=== PATIENT | male | born 1950 | race Caucasian/White ===

== ENCOUNTER 2020-06-12 11:03 | Outpatient (CLI) | payer MEDICARE, OTHER, SELFPAY ==
[2020-06-12 11:24] LABS: Basophils Percent Auto 0.2 % (0.2-1.2); Eosinophils Absolute Auto 0.2 K/mm3 (0-0.3); Eosinophils Percent Auto 3.5 % (0-4.4); Hematocrit 45.1 % (42.0-52.0); Immature Granulocyte Absolute 0.01 K/mm3 (0.00-0.031); Immature Granulocyte Percent A 0.2 % (0-0.5); Lymphocytes Absolute Auto 1.11 K/mm3 (0.9-3.2); Mean Corpuscular HGB Conc 33.3 g/dl (32-36); Mean Corpuscular Hemoglobin 29.7 pg (26-34); Mean Corpuscular Volume 89.3 fl (80-100); Mean Platelet Volume 9.8 fl (7.4-10.4); Monocytes Absolute Auto 0.4 K/mm3 (0.1-0.6); Monocytes Percent Auto 9.6 % (2.6-8.5); Neutrophils Absolute Auto 2.6 K/mm3 (1.3-6.7); Neutrophils Percent Auto 60.5 % (45.5-73.1); Platelet Count Result 161 k/mm3 (150-375); Red Blood Count 5.05 M/mm3 (4.6-6.20); Red Cell Distribution Width 12.7 % (11.5-14.5); White Blood Count 4.3 K/mm3 (4.5-10.0)
[2020-06-12 11:28] LABS: Blood Urea Nitrogen 28 mg/dL (8-26); Carbon Dioxide 26 mmol/L (22-30); Chloride 101 mmol/L (98-109); Estimated Glomerular Filt Rate 50; Glucose 103 mg/dL (70-105); Potassium 4.4 mmol/L (3.5-4.9); Sodium 140 mmol/L (138-146)
[2020-06-12 16:39] LABS: Alanine Aminotransferase 24 U/L (4-50); Albumin Level 4.2 g/dL (3.5-5.1); Alkaline Phosphatase 85 U/L (38-126); Anion Gap 12.5 mmol/L (7-16); Aspartate Amino Transferase 29 U/L (17-59); Bilirubin,Total 0.6 mg/dL (0.2-1.3); Blood Urea Nitrogen 28 mg/dL (9-20); Calcium 9.4 mg/dL (8.4-10.2); Carbon Dioxide 26 mmol/L (22-30); Chloride 104 mmol/L (98-107); Estimated Glomerular Filt Rate 55; Glucose 102 mg/dL (75-110); Potassium 4.5 mmol/L (3.4-5.0); Sodium 138 mmol/L (137-145)
== END 2020-06-12 11:04 | disposition home or self-care (01) ==
PROVIDERS: PCP Emergency Medicine; Visit Provider Internal Medicine Hematology & Oncology
DX: D61.818 Other pancytopenia (principal)
CPT/HCPCS: 36415; 80048; 80053; 85025

== ENCOUNTER 2021-06-12 09:49 | Outpatient (CLI) | payer MEDICARE, OTHER, SELFPAY ==
[2021-06-12 10:19] LABS: Basophils Percent Auto 0.6 % (0.2-1.2); Eosinophils Absolute Auto 0.1 K/mm3 (0-0.3); Eosinophils Percent Auto 3.6 % (0-4.4); Hematocrit 45.2 % (42.0-52.0); Immature Granulocyte Absolute 0.01 K/mm3 (0.00-0.031); Immature Granulocyte Percent A 0.3 % (0-0.5); Lymphocytes Absolute Auto 1.05 K/mm3 (0.9-3.2); Lymphocytes Percent Auto 29.2 % (18.3-44.2); Mean Corpuscular HGB Conc 33.2 g/dl (32-36); Mean Corpuscular Volume 90.4 fl (80-100); Mean Platelet Volume 9.5 fl (7.4-10.4); Monocytes Absolute Auto 0.5 K/mm3 (0.1-0.6); Monocytes Percent Auto 12.5 % (2.6-8.5); Neutrophils Absolute Auto 1.9 K/mm3 (1.3-6.7); Neutrophils Percent Auto 53.8 % (45.5-73.1); Platelet Count Result 159 k/mm3 (150-375); Red Cell Distribution Width 13.1 % (11.5-14.5); White Blood Count 3.6 K/mm3 (4.5-10.0)
== END 2021-06-12 09:50 | disposition home or self-care (01) ==
LOC: ANHLAB 09:58
PROVIDERS: PCP Emergency Medicine; Visit Provider Internal Medicine Hematology & Oncology
DX: D61.818 Other pancytopenia (principal)
CPT/HCPCS: 36415; 85025

== ENCOUNTER 2022-06-11 09:40 | Outpatient (CLI) | payer MEDICARE, OTHER, SELFPAY ==
[2022-06-11 09:59] LABS: Basophils Percent Auto 0.6 % (0.2-1.2); Eosinophils Absolute Auto 0.1 K/mm3 (0-0.3); Eosinophils Percent Auto 2.9 % (0-4.4); Hematocrit 44.2 % (42.0-52.0); Hemoglobin 14.7 g/dL (14.0-18.0); Lymphocytes Absolute Auto 1.12 K/mm3 (0.9-3.2); Lymphocytes Percent Auto 32.1 % (18.3-44.2); Mean Corpuscular HGB Conc 33.3 g/dl (32-36); Mean Corpuscular Hemoglobin 29.9 pg (26-34); Mean Platelet Volume 9.5 fl (7.4-10.4); Monocytes Absolute Auto 0.4 K/mm3 (0.1-0.6); Monocytes Percent Auto 11.5 % (2.6-8.5); Neutrophils Absolute Auto 1.9 K/mm3 (1.3-6.7); Neutrophils Percent Auto 52.9 % (45.5-73.1); Platelet Count Result 137 k/mm3 (150-375); Red Blood Count 4.91 M/mm3 (4.6-6.20); Red Cell Distribution Width 12.7 % (11.5-14.5); White Blood Count 3.5 K/mm3 (4.5-10.0)
[2022-06-11 10:03] LABS: Blood Urea Nitrogen 29 mg/dL (8-26); Carbon Dioxide 25 mmol/L (22-30); Chloride 106 mmol/L (98-109); Estimated Glomerular Filt Rate 50; Glucose 79 mg/dL (70-105); Ionized Calcium (POC) 1.23 mmol/L (1.11-1.31); Potassium 4.3 mmol/L (3.5-4.9); Sodium 141 mmol/L (138-146)
[2022-06-11 12:36] LABS: Alanine Aminotransferase 27 U/L (6-50); Albumin Level 4.2 g/dL (3.5-5.1); Alkaline Phosphatase 86 U/L (38-126); Anion Gap 8 mmol/L (8-16); Aspartate Amino Transferase 31 U/L (17-59); Bilirubin,Total 0.7 mg/dL (0.2-1.3); Blood Urea Nitrogen 30 mg/dL (9-20); Calcium 9.6 mg/dL (8.4-10.2); Carbon Dioxide 25 mmol/L (22-30); Chloride 106 mmol/L (98-107); Estimated Glomerular Filt Rate 55; Glucose 84 mg/dL (65-110); Potassium 4.4 mmol/L (3.4-5.0); Sodium 139 mmol/L (137-145)
== END 2022-06-11 09:41 | disposition home or self-care (01) ==
LOC: ANHLAB 09:43
PROVIDERS: PCP Emergency Medicine; Visit Provider Internal Medicine Hematology & Oncology
DX: D61.818 Other pancytopenia (principal)
CPT/HCPCS: 36415; 80047; 80053; 85025

== ENCOUNTER 2023-04-21 04:45 | Observation (INO) | payer MEDICARE, OTHER, SELFPAY ==
[2023-04-21] VITALS (10 sets, daily range): BP systolic 125–170; BP diastolic 86–104; PULSE 48–66; RESP 12–22; TEMP 35.8–36.8; O2SAT 99–100; BMI 24.3
--- NOTE | 2023-04-21 | EST_ITS ---
Patient Info Name: Jaycob Miles Age: 72 years : 1950 Gender: Male Ht: 70 in Wt: 164 lbs BSA: 1.92 m2 HR: 50 bpm BP: 147 / 81 mmHg Heart Rhythm: Sinus Rhythm Exam Date: 04/21/2023 1:09 PM Exam Location: [facility] Stress Patient Status: Outpatient Admit Date: 04/21/2023 Staff Ordering Physician: Erasto Cobos MD Attending Provider: Erasto Cobos MD Exercise Technologist: Solange Hood CT Nurse: TUAN HORNER Exam Type: CA stress test treadmill w NM Study Info Indications R07.89 - Other chest pain A nuclear stress test was performed. Summary 1. Exercise capacity very good at >10 METS. 2. Hypertensive blood pressure response to exercise. 3. No abnormal ST/T wave changes diagnostic of ischemia with exercise. 4. Please correlate with nuclear medicine images, reported separately. Protocol: Joo Stress ECG Details Stage: REST Duration (min): 0 min : 58 sec Speed (mph): 0.0 Grade (%): 0 HR (bpm): 50 SBP (mmHg): 145 DBP (mmHg): 87 METS: --- Stage: REST Duration (min): 6 min : 56 sec Speed (mph): 0.0 Grade (%): 0 HR (bpm): 48 SBP (mmHg): 145 DBP (mmHg): 87 METS: --- Stage: STAGE 1 Duration (min): 1 min : 0 sec Speed (mph): 1.7 Grade (%): 10 HR (bpm): 89 SBP (mmHg): 145 DBP (mmHg): 87 METS: --- Stage: STAGE 1 Duration (min): 2 min : 0 sec Speed (mph): 1.7 Grade (%): 10 HR (bpm): 97 SBP (mmHg): 145 DBP (mmHg): 87 METS: --- Stage: STAGE 1 Duration (min): 3 min : 0 sec Speed (mph): 1.7 Grade (%): 10 HR (bpm): 91 SBP (mmHg): 178 DBP (mmHg): 81 METS: --- Stage: STAGE 2 Duration (min): 1 min : 0 sec Speed (mph): 2.5 Grade (%): 12 HR (bpm): 100 SBP (mmHg): 178 DBP (mmHg): 81 METS: --- Stage: STAGE 2 Duration (min): 2 min : 0 sec Speed (mph): 2.5 Grade (%): 12 HR (bpm): 107 SBP (mmHg): 172 DBP (mmHg): 83 METS: --- Stage: STAGE 2 Duration (min): 3 min : 0 sec Speed (mph): 2.5 Grade (%): 12 HR (bpm): 112 SBP (mmHg): 172 DBP (mmHg): 83 METS: --- Stage: STAGE 3 Duration (min): 1 min : 0 sec Speed (mph): 3.4 Grade (%): 14 HR (bpm): 120 SBP (mmHg): 173 DBP (mmHg): 78 METS: --- Stage: STAGE 3 Duration (min): 2 min : 0 sec Speed (mph): 3.4 Grade (%): 14 HR (bpm): 127 SBP (mmHg): 173 DBP (mmHg): 78 METS: --- Stage: STAGE 3 Duration (min): 3 min : 0 sec Speed (mph): 3.4 Grade (%): 14 HR (bpm): 131 SBP (mmHg): 193 DBP (mmHg): 82 METS: --- Stage: RECOVERY Duration (min): 0 min : 59 sec Speed (mph): 0.0 Grade (%): 0 HR (bpm): 92 SBP (mmHg): 193 DBP (mmHg): 82 METS: --- Stage: RECOVERY Duration (min): 1 min : 59 sec Speed (mph): 0.0 Grade (%): 0 HR (bpm): 67 SBP (mmHg): 193 DBP (mmHg): 82 METS: --- Stage: RECOVERY Duration (min): 2 min : 59 sec Speed (mph):
--- NOTE | ~2023-04-21 | NM_ITS ---
EXAMINATION: NM stress w perf spect multi DATE: 04/21/2023 13:59 INDICATION: Chest pain. TECHNIQUE: Rest images were obtained following intravenous administration of 9.9 mCi Tc99m tetrofosmi n (DAVIDsTEA). The patient performed an exercise activity. At peak exercise, 32.0 mCi Tc99m tetrofosmin (Myoview) was administered intravenously, and stress images were obtained. Data was reconstructed in to short axis and horizontal and vertical long axis SPECT images. Gated SPECT images were also obtain ed. COMPARISON: CT abdomen and pelvis 05/08/2018 FINDINGS: There is no definite reversible or fixed perfusion abnormality to suggest ischemia or infar ction. There is no segmental wall motion abnormality. Left ventricular ejection fraction measures > 70%. IMPRESSION: 1. No definite ischemia or infarct. 2. Normal left ventricular ejection fraction measuring >70%. Reviewed, dictated and finalized at location A.
--- NOTE | ~2023-04-21 | XR_ITS ---
Portable chest x-ray Comparison: None Clinical History: Chest pain Findings: Lungs are clear, without focal consolidation or pleural effusion. Cardiomediastinal silho uette is unremarkable. Bones and soft tissues are unremarkable. Impression: Normal chest. Reviewed, dictated and finalized at location . Impression: Normal chest.
--- NOTE | 2023-04-21 04:49 | ECG_ITS ---
Measurements Intervals [place] Rate: 64 P: 7 WV: 147 QRS: -19 QRSD: 93 T: 31 QT: 382 QTc: 396 Interpretive Statements SINUS RHYTHM NO PREVIOUS ECG AVAILABLE FOR COMPARISON Electronically Signed On 04-21-2023 10:55:47 CDT by Mis Love M.D.
[2023-04-21] MEDS: ASPIRIN 81 MG CHEWABLE TABLET 324 MG PO (05:35)
[2023-04-21 05:50] LABS: Basophils Percent Auto 0.3 % (0.2-1.2); Eosinophils Absolute Auto 0.1 K/mm3 (0-0.3); Eosinophils Percent Auto 4.5 % (0-4.4); Hematocrit 44.3 % (42.0-52.0); Hemoglobin 14.7 g/dL (14.0-18.0); Immature Granulocyte Absolute 0.01 K/mm3 (0.00-0.031); Immature Granulocyte Percent A 0.3 % (0-0.5); Lymphocytes Absolute Auto 1.19 K/mm3 (0.9-3.2); Lymphocytes Percent Auto 38.1 % (18.3-44.2); Mean Corpuscular HGB Conc 33.2 g/dl (32-36); Mean Corpuscular Hemoglobin 29.6 pg (26-34); Mean Corpuscular Volume 89.1 fl (80-100); Mean Platelet Volume 9.5 fl (7.4-10.4); Monocytes Absolute Auto 0.4 K/mm3 (0.1-0.6); Monocytes Percent Auto 11.2 % (2.6-8.5); Neutrophils Absolute Auto 1.4 K/mm3 (1.3-6.7); Neutrophils Percent Auto 45.6 % (45.5-73.1); Platelet Count Result 147 k/mm3 (150-375); Red Blood Count 4.97 M/mm3 (4.6-6.20); Red Cell Distribution Width 13.2 % (11.5-14.5); White Blood Count 3.1 K/mm3 (4.5-10.0)
[2023-04-21 05:58] LABS: INR 0.9; Prothrombin Time 12.9 Seconds (11.1-14.7)
[2023-04-21 05:59] LABS: Partial Thromboplastin Time 24.1 SECONDS (22.3-36.8)
[2023-04-21 06:01] LABS: Alanine Aminotransferase 30 U/L (6-50); Albumin Level 4.2 g/dL (3.5-5.1); Alkaline Phosphatase 107 U/L (38-126); Anion Gap 5 mmol/L (8-16); Aspartate Amino Transferase 34 U/L (17-59); Bilirubin,Total 0.5 mg/dL (0.2-1.3); Blood Urea Nitrogen 26 mg/dL (9-20); Calcium 8.9 mg/dL (8.4-10.2); Carbon Dioxide 26 mmol/L (22-30); Chloride 106 mmol/L (98-107); Estimated CRCL calculation 53 ml/min; Estimated Glomerular Filt Rate 60; Glucose 102 mg/dL (65-110); Lipase 96 U/L (23-300); Sodium 137 mmol/L (137-145)
[2023-04-21 06:11] LABS: Troponin I < 0.012 ng/mL (0.000-0.034)
--- NOTE | 2023-04-21 07:24 | ED.CHESTPAIN ---
HPI - Chest Pain General Chief Complaint: Chest Pain Stated Complaint: chest pain Time Seen by Provider: 04/21/23 07:23 Source: patient and family History of Present Illness HPI narrative: Patient presents with left chest pain radiating to left upper extremity wake him up from sleep at 5:00 this morning. Associated with perspiration, and elevated blood pressure. Patient denies having similar symptoms. Patient does not take medicine at home, drinks occasionally. Currently is pain-free. Pain lasted for 30 minutes Related Data Allergies Allergy/AdvReac Type Severity Reaction Status Date / Time gabapentin Allergy Hallucinati Verified 04/21/23 05:37 ng Review of Systems Review of Systems: All systems reviewed & are unremarkable except as noted in HPI and below Exam Narrative: General appearance: Well-developed, well-nourished Skin: Normal color Head: Normocephalic, nontraumatic Eyes: Clear conjunctiva ENT: Oropharynx normal, ears normal, nose normal Neck: Supple, nontender Chest and respiratory: Airway patent, no respiratory distress, no accessory muscle use Heart: Regular rate/rhythm Abdomen: Soft, nontender, no organomegaly, quiet bowel sounds Vascular: Normal peripheral pulses, normal capillary refill. Musculoskeletal: Normal range of motion, nontender back Neurologic: Alert and oriented ?3, DRESSER TENDER is normal as tested, no gross motor deficit Course Reevaluation(s) Reevaluation #1: Currently patient is asymptomatic Date: 04/21/23 Time: 07:37 Vital Signs Vital signs: Vital Signs Temperature 36.8 C 04/21/23 04:55 Pulse Rate 63 04/21/23 04:55 Respiratory Rate 20 04/21/23 04:55 Blood Pressure 151/104 H 04/21/23 04:55 Pulse Oximetry 99 04/21/23 04:55 Oxygen Delivery Room Air 04/21/23 04:55 Temperature 36.8 C 04/21/23 04:55 Pulse Rate 52 L 04/21/23 07:55 Respiratory Rate 16 04/21/23 07:55 Blood Pressure 138/96 H 04/21/23 07:55 Pulse Oximetry 99 04/21/23 07:55 Oxygen Delivery Room Air 04/21/23 05:53 MDM - Chest Pain MDM Narrative Medical decision making narrative: Patient presents with left chest pain woke him up from sleep, lasted for 30 minutes, currently is asymptomatic. Work-up today showed normal blood work-up including troponin, EKG on arrival showed normal sinus rhythm at 64 bpm without any acute abnormality, cardiac score is 4 patient to be admitted for observation. Differential Diagnosis Differential diagnosis: Likely atypical chest pain Lab Data 04/21/23 05:38 04/21/23 05:38 Labs: Lab Results 04/21/23 04/21/23 Range/Units 05:38 08:33 WBC 3.1 L (4.5-10.0) K/mm3 RBC 4.97 (4.6-6.20) M/mm3 Hgb 14.7 (14.0-18.0) g/dL Hct 44.3 (42.0-52.0) % MCV 89.1 (80-100) fl MCH 29.6 (26-34) pg MCHC 33.2 (32-36) g/dl RDW 13.2 (11.5-14.5) % Plt Count 147 L (150-375) k/mm3 MPV 9.5 (7.4-10.4) fl Immature Gran % (Auto) 0.3 (0-0.5) % Neut % (Auto) 45.6 (45.5-73.1) % Lymph % (Auto) 38.1 (18.3-44.2) % [place] % (Auto) 11.2 H (2.6-8.5) % Eos % (Auto) 4.5 H (0-4.4) % Baso % (Auto) 0.3 (0.2-1.2) % Lymph # (Auto) 1.19 (0.9-3.2) K/mm3 [place] # (Auto) 0.4 (0.1-0.6) K/mm3 Eos # (Auto) 0.1 (0-0.3) K/mm3 Baso # (Auto) 0.0 (0.0-0.1) K/mm3 Abs Immat Gran (auto) 0.01 (0.00-0.031) K/mm3 Absolute Neuts (auto) 1.4 (1.3-6.7) K/mm3 Absolute Nucleated RBC 0.0 (0.0-0.012) K/mm3 Nucleated RBC % 0.0 (0.0-0.2) % PT 12.9 (11.1-14.7) Seconds INR 0.9 APTT 24.1 (22.3-36.8) SECONDS Sodium 137 (137-145) mmol/L Potassium 4.0 (3.4-5.0) mmol/L Chloride 106 (98-107) mmol
[2023-04-21 09:04] LABS: Troponin I < 0.012 ng/mL (0.000-0.034)
--- NOTE | 2023-04-21 09:23 | PM.SD2 ---
Same Day Admit/Disch: HPI History of Present Illness Chief complaint: Chest pain Narrative: Jaycob Miles is a 72 year old male with potential significant past medical history who presented to the ER after review of chest pain this morning. Patient woke up with left-sided throbbing chest pain. He had some delusion to his left arm he felt some numbness in his left arm later on he had a throbbing sensation on the left side of his neck. The symptoms lasted for about an hour and then resolved. Patient does not have any prior history of coronary artery disease or any other medical issues. He does not take any medications. He reports having some mental stressors. EKG in the ED was normal. Troponin was negative PMFSH Surgical History Surgical History (Updated 04/21/23 @ 10:23 by Erasto Cobos MD) H/O knee surgery History of hip surgery Family History Family History (Updated 04/21/23 @ 11:14 by Dori Alex RN) Sibling Acute myocardial infarction Brother Sibling Diabetes mellitus Sister Hypertension Social History Social History (Updated 04/21/23 @ 10:23 by Erasto Cobos MD) Smoking status: Never smoker Alcohol intake: current Drinks per week: 4 Substance use: never Lack of Transportation: No Lack of Food: Never True Current Housing: I Have Housing Concerned About Future Housing: No Difficulty Paying Gas/Electric Bills: No Difficulty Paying for Meds: No Currently Unemployed: No Education: Master's Degree or Higher Difficulty w/ Childcare or Family Care: No Spiritual care concerns: No Same Day Admit/Disch: Med Pre-admit Medications Home Medications Medication Instructions Recorded Confirmed Type No Home Medications 04/21/23 04/21/23 History Exam Narrative: General appearance: Well-developed, well-nourished Skin: Normal color Head: Normocephalic, nontraumatic Eyes: Clear conjunctiva ENT: Oropharynx normal, ears normal, nose normal Neck: Supple, nontender Chest and respiratory: Airway patent, no respiratory distress, no accessory muscle use Heart: Regular rate/rhythm Abdomen: Soft, nontender, no organomegaly, quiet bowel sounds Vascular: Normal peripheral pulses, normal capillary refill. Musculoskeletal: Normal range of motion, nontender back Neurologic: Alert and oriented ?3, LEAD QUALITY TECHNICIAN is normal as tested, no gross motor deficit DS: Data Data Completed and Pending Labs on day of discharge: Labs from last 24 hours 04/21/23 04/21/23 08:33 05:38 WBC 3.1 L RBC 4.97 Hgb 14.7 Hct 44.3 MCV 89.1 MCH 29.6 MCHC 33.2 RDW 13.2 Plt Count 147 L MPV 9.5 Immature Gran % (Auto) 0.3 Neut % (Auto) 45.6 Lymph % (Auto) 38.1 [place] % (Auto) 11.2 H Eos % (Auto) 4.5 H Baso % (Auto) 0.3 Lymph # (Auto) 1.19 [place] # (Auto) 0.4 Eos # (Auto) 0.1 Baso # (Auto) 0.0 Abs Immat Gran (auto) 0.01 Absolute Neuts (auto) 1.4 Absolute Nucleated RBC 0.0 Nucleated RBC % 0.0 PT 12.9 INR 0.9 APTT 24.1 Sodium 137 Potassium 4.0 Chloride 106 Carbon Dioxide 26 Anion Gap 5 L BUN 26 H Creatinine 1.20 Estim Creat Clear Calc 53 Estimated GFR 60 Glucose 102 Calcium 8.9 Total Bilirubin 0.5 AST 34 ALT 30 Alkaline Phosphatase 107 Troponin I < 0.012 < 0.012 Total Protein 7.0 Albumin 4.2 Lipase 96 DS: Summary Hospital Course Hospital Course: Patient admiyted with left sided chest pain. EKG, troponin normal. Treadmill and Nuclear portion of the Stress Test were completely normal. patient will be discharged home. Time Spent with Patient Time attestation: Total time spent providing
--- NOTE | 2023-04-21 10:05 | PC.NURSE ---
cardiology called stated stress test around 1300 or so
--- NOTE | 2023-04-21 10:55 | ADMGEN ---
This patient, Jaycob Miles, was admitted to IMU Room 206-02. Patient/family oriented to hospital policies and general routines including ID bracelet, bed and alarms, visiting hours, pain management, procedures, bathroom and other care routines, personal items, smoking policy, room service/diet, and visiting hours. Information on how to activate the Rapid Response Team has been discussed. Patient/Family are encouraged to report perceived risks to care and to ask questions if they do not understand what they are told or what they should do.
[2023-04-21 11:52] LABS: Troponin I < 0.012 ng/mL (0.000-0.034)
== END 2023-04-21 16:00 | disposition home or self-care (01) ==
LOC: ANHED 07:39 → ANHIMU 10:17
PROVIDERS: Emergency Medicine; Admitting Provider Hospitalist; Emergency Provider Emergency Medicine; Visit Provider Hospitalist
DX: R07.9 Chest pain, unspecified (principal); R03.0 Elevated blood-pressure reading, without diagnosis of hypertension; R20.0 Anesthesia of skin; M79.602 Pain in left arm; R09.89 Other specified symptoms and signs involving the circulatory and respiratory systems; F10.90 Alcohol use, unspecified, uncomplicated
CPT/HCPCS: 36415; 71045; 78452; 80053; 83690; 84484; 85025; 85610; 85730; 93005; 93017; 99285; A9270; A9502; G0378

== ENCOUNTER 2023-06-08 08:42 | Outpatient (RCR) | payer MEDICARE, OTHER, SELFPAY ==
[2023-06-08 09:00] LABS: Basophils Percent Auto 0.4 % (0.2-1.2); Eosinophils Absolute Auto 0.1 K/mm3 (0-0.3); Eosinophils Percent Auto 3.9 % (0-4.4); Hematocrit 45.1 % (42.0-52.0); Hemoglobin 15.3 g/dL (14.0-18.0); Immature Granulocyte Absolute 0.01 K/mm3 (0.00-0.031); Immature Granulocyte Percent A 0.4 % (0-0.5); Lymphocytes Absolute Auto 0.99 K/mm3 (0.9-3.2); Lymphocytes Percent Auto 35.4 % (18.3-44.2); Mean Corpuscular HGB Conc 33.9 g/dl (32-36); Mean Corpuscular Hemoglobin 30.4 pg (26-34); Mean Corpuscular Volume 89.5 fl (80-100); Mean Platelet Volume 9.1 fl (7.4-10.4); Monocytes Absolute Auto 0.3 K/mm3 (0.1-0.6); Monocytes Percent Auto 11.4 % (2.6-8.5); Neutrophils Absolute Auto 1.4 K/mm3 (1.3-6.7); Neutrophils Percent Auto 48.5 % (45.5-73.1); Platelet Count Result 140 k/mm3 (150-375); Red Blood Count 5.04 M/mm3 (4.6-6.20); Red Cell Distribution Width 12.7 % (11.5-14.5); White Blood Count 2.8 K/mm3 (4.5-10.0)
[2023-06-08 09:05] LABS: Blood Urea Nitrogen 27 mg/dL (8-26); Carbon Dioxide 26 mmol/L (22-30); Chloride 103 mmol/L (98-109); Estimated Glomerular Filt Rate 50; Glucose 97 mg/dL (70-105); Ionized Calcium (POC) 1.33 mmol/L (1.11-1.31); Potassium 4.7 mmol/L (3.5-4.9); Sodium 140 mmol/L (138-146)
[2023-06-08 11:14] LABS: Alanine Aminotransferase 38 U/L (6-50); Albumin Level 4.5 g/dL (3.5-5.1); Alkaline Phosphatase 88 U/L (38-126); Anion Gap 7 mmol/L (8-16); Aspartate Amino Transferase 36 U/L (17-59); Bilirubin,Total 1.2 mg/dL (0.2-1.3); Blood Urea Nitrogen 26 mg/dL (9-20); Calcium 9.4 mg/dL (8.4-10.2); Carbon Dioxide 27 mmol/L (22-30); Chloride 104 mmol/L (98-107); Estimated Glomerular Filt Rate 60; Glucose 96 mg/dL (65-110); Potassium 4.8 mmol/L (3.4-5.0); Sodium 138 mmol/L (137-145)
--- NOTE | 2023-06-08 12:06 | WPDONCPN ---
Progress Note: A/P (1) Chronic leukopenia Code(s): D72.819 - Decreased white blood cell count, unspecified Status: Acute Assessment and plan: Patient with chronic leukopenia of 4-5 year duration. Patient asymptomatic with no infections needing antibiotics. he denies chronic sinus infections, bronchitis, UTI. 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 Leukopenia is clinically insignificant. Today WBC is 2.8K with ANC of 1.4K. Hemoglobin is 15.3 g/dL and platelet count of 140K. No intervention needed. He will see Dr. Israel in 1 year with labs. - Time Spent With Patient Total time spent is greater than 50% in coordination of care (as documented) at patient's floor/unit and/or counseling patient: 25 - 35 minutes Subjective Interval history: REASON FOR VISIT: Yearly surveillance of Leukopenia HPI: Patient is here for yearly surveillance of leukopenia, noted for past 4-5 years. He last saw Dr. Israel 06/11/22. since then patient is feeling well and remains very active with biking, running, golfing. 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 he returned in 04/2023 and had ER visit for chest pain 04/2023. CAD was ruled out with EKG and nuclear stress test. He has seen his reel operator who believes chest pain is likely musculoskeletal. No infections in last 1 year. Review of Systems - Review of Systems Patient states that he has had intermittent chest pain for few times in past few months. Happens at night and wakes him up from his sleep. He denies associated nausea and vomiting. He is very active and has no exertional chest pain. He has had no infections in last one year. No use of antibiotics. denies bleeding or bruising. He denies abdominal pain, n/v/d. Denies hematochezia or melena. no hematuria. No lymphadenopathy. no dizziness, syncope, headache, TIA or CVA. Exam - Constitutional no acute distress - Routine HEENT Exam Head: Present: atraumatic, normal inspection Eye: Present: EOMI, normal appearance - Routine Neck Exam Present: full ROM - Routine Respiratory Exam Present: CTAB - Routine Cardiovascular Exam Cardiovascular: Present: RRR, S1, S2 - Routine Back/Spine/Pelvis Exam Back/Spine: Present: full ROM - Routine Skin Exam Present: intact - Routine Neurological Exam Present: alert, oriented X3, CN II-XII intact PN: Objective Data - Labs CBC & Chem 7: 06/08/23 08:58 06/08/23 09:04 Labs: Laboratory Results - last 24 hr 06/08/23 06/08/23 08:58 09:04 WBC 2.8 L RBC 5.04 Hgb 15.3 Hct 45.1 MCV 89.5 MCH 30.4 MCHC 33.9 RDW 12.7 Plt Count 140 L MPV 9.1 Immature Gran % (Auto) 0.4 Neut % (Auto) 48.5 Lymph % (Auto) 35.4 [place] % (Auto) 11.4 H Eos % (Auto) 3.9 Baso % (Auto) 0.4 Lymph # (Auto) 0.99 [place] # (Auto) 0.3 Eos # (Auto) 0.1 Baso # (Auto) 0.0 Abs Immat Gran (auto) 0.01 Absolute Neuts (auto) 1.4 Absolute Nucleated RBC 0.0 Nucleated RBC % 0.0 Sodium 138 140 Potassium 4.8 4.7 Chloride 104 103 Carbon Dioxide 27 26 Anion Gap 7 L BUN 26 H 27 H Creatinine 1.20 1.40 Estim Creat Clear Calc Not Reportable Not Reportable Estimated GFR 60 50 L Glucose 96 97 Calcium 9.4 POC Venous Ion Calcium 1.33 H Total Bilirubin 1.2 AST 36 ALT 38 Alkaline Phosphatase 88 Total Protein 8.0 Albumin 4.5
== END 2023-06-13 10:46 ==
LOC: AMCINF 08:42
PROVIDERS: PCP Emergency Medicine; Visit Provider Internal Medicine
DX: D61.818 Other pancytopenia (principal)
CPT/HCPCS: 36415; 80047; 80053; 85025

== ENCOUNTER 2024-06-11 09:08 | Outpatient (CLI) | payer MEDICARE, OTHER, SELFPAY ==
[2024-06-11 09:21] LABS: Basophils Percent Auto 0.5 % (0.2-1.2); Eosinophils Absolute Auto 0.1 K/mm3 (0-0.3); Eosinophils Percent Auto 3.6 % (0-4.4); Hemoglobin 15.4 g/dL (14.0-18.0); Immature Granulocyte Absolute 0.01 K/mm3 (0.00-0.031); Immature Granulocyte Percent A 0.3 % (0-0.5); Lymphocytes Absolute Auto 1.24 K/mm3 (0.9-3.2); Lymphocytes Percent Auto 33.9 % (18.3-44.2); Mean Corpuscular HGB Conc 33.5 g/dl (32-36); Mean Corpuscular Hemoglobin 30.1 pg (26-34); Mean Platelet Volume 9.3 fl (7.4-10.4); Monocytes Absolute Auto 0.4 K/mm3 (0.1-0.6); Monocytes Percent Auto 10.7 % (2.6-8.5); Neutrophils Absolute Auto 1.9 K/mm3 (1.3-6.7); Platelet Count Result 177 k/mm3 (150-375); Red Blood Count 5.11 M/mm3 (4.6-6.20); Red Cell Distribution Width 12.5 % (11.5-14.5); White Blood Count 3.7 K/mm3 (4.5-10.0)
[2024-06-11 09:26] LABS: Blood Urea Nitrogen 27 mg/dL (8-26); Carbon Dioxide 25 mmol/L (22-30); Chloride 104 mmol/L (98-109); Estimated Glomerular Filt Rate 50; Glucose 98 mg/dL (70-105); Ionized Calcium (POC) 1.33 mmol/L (1.11-1.31); Potassium 4.2 mmol/L (3.5-4.9); Sodium 140 mmol/L (138-146)
[2024-06-11 10:28] LABS: Alanine Aminotransferase 34 U/L (6-50); Albumin Level 4.8 g/dL (3.5-5.1); Alkaline Phosphatase 90 U/L (38-126); Anion Gap 10 mmol/L (4-12); Aspartate Amino Transferase 34 U/L (17-59); Blood Urea Nitrogen 27 mg/dL (9-20); Calcium 10.1 mg/dL (8.4-10.2); Carbon Dioxide 25 mmol/L (22-30); Chloride 103 mmol/L (98-107); Estimated Glomerular Filt Rate 60; Glucose 100 mg/dL (65-110); Potassium 4.2 mmol/L (3.4-5.0); Sodium 138 mmol/L (137-145)
== END 2024-06-11 09:09 | disposition home or self-care (01) ==
LOC: ANHLAB 09:10
PROVIDERS: PCP Emergency Medicine; Visit Provider Internal Medicine Hematology & Oncology
DX: D61.818 Other pancytopenia (principal)
CPT/HCPCS: 36415; 80047; 80053; 85025

== ENCOUNTER 2025-06-14 08:04 | Outpatient (CLI) | payer MEDICARE, OTHER, SELFPAY ==
--- OUTSIDE RECORDS SUMMARY | 2025-06-14 08:08 | XMS_ITS | Encounter Summary ---
Author Organization [facility] Address [facility] [place] [address] Care Team Providers Care Processing Rep Name Role Phone Nicolas Mercer MD Primary Care Provider [phone] Rashida Cintron MD Unavailable [phone] Omar Jo MD Unavailable [phone] Orlando Israel MD Unavailable [phone] David Bland MD Unavailable Unavailable Encounter Details Date Type Department Care Team (Late st Contact Info) Description 06/24/2020 [employer] Message Enc [facility] Medical Group Family & Internal Medicine [facility] [address] [place] [address] Janeth, [facility] Provider RE:Appointment Social History Tobacco Use Types Packs/Day Years Used Date Smoking Tobacco: Never Smokeless Tobacco: Never Alcohol Use Standard Drinks/Week Comments Yes 0 (1 standard drink = 0.6 oz pur e alcohol) AUDIT-C Answer Date Recorded Frequency of Alcohol Consumption 2-3 times a wee k 10/04/2018 Average Number of Drinks Not on file 018 Frequency of Binge Drinking Not on file 09/15 PHQ-2 Answer Date Recorded PHQ-2 Score 0 04/24/2020 Education Answer Date Recorded What is the highest level of school you have completed or the highest degree you have received? Master's degree (e.g., MA, MS, Kaley, MEd, LPN PER DIEM, YENNY) 10/04/2018 Sex and Gender Information Value Date Recorded Sex Assigned at Male 04/24/2020 7:21 AM CDT Legal Sex Male 2:57 AM CDT Gender Identity Male 04/24/2020 7:21 AM CDT Sexual Orientation Straight 04/24/2020 7: 21 AM CDT documented as of this encounter Plan of Treatment Not on file documented as of this encounter Visit Diagnoses Not on filedocumented in this encounter Care Teams Processing Rep Relationship Specialty Start Date End Date Nicolas Mercer MD PCP - General INTERNAL MEDICINE 10/12/18 Rashida Cintron MD [address] [place] [address] Consulting Physician DERMATOLOGY 07/03/20 [place] [id number] [facility] [address] [place] [id number] Consulting Physician ORTHOPAEDIC SURGERY 07/03/20 Orlando Irsael MD [facility] [address] [place] [phone] Consulting Physician HEMATOLOGY/ONCOLOGY 07/03/20 David Bland MD [address] [place] [address] Consulting Physician INTERNAL MEDICINE 07/03/20 documented as of this encounter
--- OUTSIDE RECORDS SUMMARY | 2025-06-14 08:08 | XMS_ITS | Encounter Summary ---
Author Organization [facility] Address [facility] license of [facility] [place] [address] Care Team Providers Care Public Relations Assistant Name Role Phone Nicolas Mercer MD Primary Care Provider [phone] Rashida Cintron MD Unavailable [phone] Omar Jo MD Unavailable [phone] Orlando Israel MD Unavailable [phone] David Bland MD Unavailable Unavailable Encounter Details Date Type Department Care Team (Late st Contact Info) Description 07/30/2019 [employer] Message Enc [facility] Medical Group Family & Internal Medicine [facility] [address] [place] [address] Nicolas Mercer MD [address] [address] RE: Question Social History Tobacco Use Types Packs/Day Years Used Date Smoking Tobacco: Never Smokeless Tobacco: Never Alcohol Use Standard Drinks/Week Comments Yes 0 (1 standard drink = 0.6 oz pur e alcohol) AUDIT-C Answer Date Recorded Frequency of Alcohol Consumption 2-3 times a abdoulayee k 10/04/2018 Average Number of Drinks Not on file 018 Frequency of Binge Drinking Not on file 09/15 Education Answer Date Recorded What is the highest level of school you have completed or the highest degree you have received? Master's degree (e.g., MA, MS, Kaley, MEd, TECHNICAL INFORMATION SPECIALIST, YENNY) 10/04/2018 Sex and Gender Information Value [...] on filedocumented in this encounter Care Teams Public Relations Assistant Relationship Specialty Start Date End Date Nicolas Mercer MD PCP - General INTERNAL MEDICINE 10/12/18 Rashida Cintron MD [address] [place] [address] Consulting Physician DERMATOLOGY 07/03/20 [place] [address] [facility] [address] [place] [address] Consulting Physician ORTHOPAEDIC SURGERY 07/03/20 Orlando Israel MD [address] [place] [address] [place] [phone] Consulting Physician HEMATOLOGY/ONCOLOGY 07/03/20 David Bland MD [address] [place] [address] [employer] [place] [phone] Consulting Physician INTERNAL MEDICINE 07/03/20 documented as of this encounter
--- OUTSIDE RECORDS SUMMARY | 2025-06-14 08:08 | XMS_ITS | Encounter Summary ---
Author Organization [facility] Address [facility] [place] [address] Care Team Providers Care Pesticide Chemist Name Role Phone Nicolas Mercer MD Primary Care Provider [phone] Rashida Cintron MD Unavailable [phone] Omar Jo MD Unavailable [phone] Orlando Israel MD Unavailable [phone] David Bland MD Unavailable Unavailable Encounter Details Date Type Department Care Team (Late st Contact Info) Description 02/02/2021 [employer]At Message Enc [facility] Medical Group Family & Internal Medicine [facility] [address] [place] [address] Nicolas Mercer MD [address] [phone] RE: Other Social History Tobacco Use Types Packs/Day Years [...] 09/15 PHQ-2 Answer Date Recorded PHQ-2 Score - If the patient scores above 3, please move on to questions 3-9 0 07/03/2020 Education Answer Date Recorded What is the highest level of school you have completed or the highest degree you have received? Master's degree (e.g., MA, MS, Kaley, MEd, CONTRACT RECRUITER, YENNY) 10/04/2018 Sex and Gender Information Value [...] on filedocumented in this encounter Care Teams Pesticide Chemist Relationship Specialty Start Date End Date Nicolas Mercer MD PCP - General INTERNAL MEDICINE 10/12/18 Rashida Cintron MD [address] [place] [address] Consulting Physician DERMATOLOGY 07/03/20 [place] [address] [facility] [address] [place] [id number] Consulting Physician ORTHOPAEDIC SURGERY 07/03/20 Orlando Israel MD [address] [place] [address] Consulting Physician HEMATOLOGY/ONCOLOGY 07/03/20 David Bland MD [address] [place] [address] Consulting Physician INTERNAL MEDICINE 07/03/20 documented as of this encounter
--- OUTSIDE RECORDS SUMMARY | 2025-06-14 08:08 | XMS_ITS | Clinical Summary ---
Author Organization [facility] Address [address] [place] [address] Care Team Providers Care Customer Assistance Associate Name Role Phone Nicolas Mercer MD Primary Care Provide r Allergies Active Allergy Reactions Criticality Noted Date Comments Gabapentin Rash Low 05/03/2018 Medications sildenafil (VIAGRA) 50 mg tablet Take 50 mg by mouth 1 time daily as needed for Erectile Dysfunction. Active prednisoLONE acetate (PRED FORTE) 1 % suspension 03/19/2021 Active amoxicillin (AMOXIL) 500 mg Tablet 02/09/2021 Active cephALEXin (KEFLEX) 500 mg capsule Take 500 mg by mouth every 12 hours. 05/06/2022 Active BinaxNOW COVID-19 Ag Self Test Kit TEST DIRECTED TODAY 05/15/2022 Active tadalafiL (CIALIS) 20 mg tablet TAKE 1 TABLET BY MOUTH EVERY DAY NEEDED 04/02/2022 Active Active Problems Problem Noted Date Diagnosed Date History of pneumonia 05/03/2018 Hx of prostatitis 05/03/2018 Hx of renal calculi 05/03/2018 Hypertensive retinopathy 05/03/2018 Vitamin D deficiency 05/03/2018 Other neutropenia 05/03/2018 Encounters Date Type Department Care Team Description 06/13/2025 Orders Only [facility] Oncology and Hematology - Natan [address] [place] [address] Orlando Israel MD Pancytopenia (CMS/HCC) (Primary Dx) 2025 External Device Data STL ABSTRACTION Provider, Abstract 04/09/2025 External Device Data STL ABSTRACTION Provider, Abstract 04/04/2025 External Device Data STL ABSTRACTION Provider, Abstract 04/03/2025 External Device Data STL ABSTRACTION Provider, Abstract 04/02/2025 External Device Data STL ABSTRACTION Provider, Abstract from Last 3 Months Family History Medical History Relation Name Comments Arthritis-rheumatoid Brother Heart Disease Brother Osteoporosis Brother Arthritis-rheumatoid Mother Breast Cancer Mother Osteoporosis Mother Diabetes Sister Relation Name Status Comments Brother Mother Sister Social History Tobacco Use Types Packs/Day Years Used Date Smoking Tobacco: Never Smokeless Tobacco: Never Tobacco Cessation:Counseling Given: Not Answered Alcohol Use Standard Drinks/Week Comments Yes 4 (1 standard drink = 0.6 oz pur e alcohol) Sex and Gender Information Value Date Recorded Sex Assigned at Not on file Legal Sex Male 10:02 AM CDT Gender Identity Not on file Sexual Orientation Not on file Last Filed Vital Signs Vital Sign Reading Time Taken Comments Blood Pressure 130/78 06/11/2024 9:30 AM CDT Pulse 56 06/11/2024 9:30 AM CDT Temperature 36.5 C (97.7 F) 06/11/2024 9:30 AM CDT Respiratory Rate 18 06/11/2024 9:30 AM CDT Oxygen Saturation 94% 06/11/2024 9:30 AM CDT Inhaled Oxygen Concentration - - Weight 73 kg (161 lb) 06/11/2024 9:30 AM CDT Height 177.8 cm (5' 10) 06/11/2022 10:08 AM CDT Body Mass Index 23.1 06/11/2022 10:08 AM CDT Plan of Treatment Upcoming Encounters Date Type Department Care Team (Late st Contact Info) Description 06/14/2025 8:30 AM CDT Office Visit [facility] Oncology and Hematology - Natan [address] [facility] [address] [place] [address] Orlando Israel MD [address] [facility] [address] [place] [address] Health Maintenance Due Date Last Done Comments Traditional Medicare (ACO) A nnual Wellness Visit 1971 FIT-DNA Q 3 years 1997 FIT/FOBT Q 1 year 1997 Flex Sig/CT Colonography Q 5 years 1997 ZOSTER VACCINE (3 of 3) 06/03/2020 04/08/20 20, 04/08/2020, 01/21/2020, Additional history exists DTAP/TDAP/TD VACCINES (3 - T d or Tdap) 07/05/2024 07/05/2014, 03/28/2012 COVID-19 Vaccine (5 - 2023-2 5 season) 2024 02/19/2022, 08/25/2021, 02/02/2021, Additional history exists INFLUENZA VACCINE (#1) 2025 , 08/04/2020, 08/01/2019, Additional history exists RSV VACCINE (60+ or ) (1 - 1-dose 75+ series) 2027 COLORECTAL SCREENING 09/04/2031 09/04/2021, 11/13/2020, 06/21/2018, Additional history exists Colorectal Cancer Screening 09/04/2031 PNEUMOCOCCAL VACCINE 50+ YEARS Completed 0 01/21/2020, 01/12/2019, 04/07/2018, Additional history exists Insurance MEDICARE PART A AND B [employer] MEDICARE PART A AND B FOR LIFE Care Teams Customer Assistance Associate Relationship Specialty Start Date End Date iNcolas Mercer MD PCP - General Internal Medicine 05/03/18
--- OUTSIDE RECORDS SUMMARY | 2025-06-14 08:08 | XMS_ITS | Clinical Summary ---
Author Organization [facility] Address [facility] [place] [address] Care Team Providers Care Dry Goods Inspector Name Role Phone Nicolas Mercer MD Primary Care Provider [phone] Rashida Cintron MD Unavailable [phone] Omar Jo MD Unavailable [phone] Orlando Israel MD Unavailable [phone] David Bland MD Unavailable Unavailable Allergies Active Allergy Reactions Criticality Noted Date Comments Gabapentin Blurred vision 09/02/2017 Medications Clobetasol Propionate 0.05 % Foam Apply daily as needed 2 8 Active sildenafil 50 MG tabletIndication s:Erectile dysfunction, unspecified erectile dysfunction type Take 1 tablet (50 mg total) by mouth as needed for Erectile Dysfunction. 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 ABIOLA positive 05/19/2018 Assessment & Plan (06/08/2019 12:38 PM CDT): Regular follow-up with rheumatology, no indications for treatment at this time- weakly positive. Arthritis 05/19/2018 Assessment & Plan (06/08/2019 12:37 PM CDT): Reasonably controlled with occasional [id number] medications. Not currently limiting activities of daily life. No treatment change. Continue routine exercise. History of pneumonia 05/03/2018 Hx of prostatitis 05/03/2018 Hx of renal calculi 05/03/2018 Hypertensive retinopathy 05/03/2018 Vitamin D deficiency 05/03/2018 Other neutropenia 05/03/2018 Assessment & Plan (06/08/2019 12:38 PM CDT): Routine follow-up with hematology scheduled. BMI 25.0-25.9,adult 04/07/2018 Assessment & Plan (06/08/2019 12:38 PM CDT): Continues exercise plan, with some weight loss since last visit. Medication management 04/07/2018 Assessment & Plan (06/08/2019 12:39 PM CDT): Orders provided for routine CMP, TSH with reflex free T4, and PSA with next blood draw with Dr. Israel. Decreased hearing of both ears 09/02/2017 Wears glasses 09/02/2017 Hyperglycemia 03/08/2017 Assessment & Plan (06/08/2019 12:37 PM CDT): Check routine lab work with next blood draw. Subclinical hypothyroidism 03/08/2017 Assessment & Plan (06/08/2019 12:37 PM CDT): Check TSH with reflex free T4 with next routine lab work. No signs or symptoms of hypothyroidism. Erectile dysfunction 12/27/2016 Assessment & Plan (06/08/2019 12:39 PM CDT): Sildenafil remains effective for symptom relief, renew today, 1 year follow-up. Knee joint replacement by other means 03/05/2014 Presence of left artificial knee joint 4 Resolved Problems Problem Noted Date Diagnosed Date Resolved Date Leukopenia 04/12/2018 10/06/2018 Cataract, left eye 09/02/2017 0 Immunizations Immunization Administration Dates Next Due Fluzone High Dose - >Age 65 (Prefilled Syringe) 08/04/2020,08/01/2019 Influenza (Generic) 08/10/2016,08/20/2013 Influenza Adult (Generic) 08/23/2018,08/26/2017, 08/02/2014 PFIZER COVID-19 (ORIGINAL FO RMULATION, PURPLE CAP) mRNA, LNP-S, PF, 30 MCG/0.3 ML DOSE 02/02/2021,01/10/2021 Pneumococcal (Pneumovax 23) 01/21/2020, 2 Pneumococcal (Prevnar 13) 04/07/2018 Tdap (Generic) 07/05/2014 Zoster (Zostavax) 26447 Unt/0.65Ml 04/08/2020,,03/28/2012 Family History Medical History Relation Comments No Known Problems Father Breast Cancer Mother Relation Status Comments Father Mother Social History Tobacco Use Types Packs/Day Years [...] Master's degree (e.g., MA, MS, Kaley, MEd, GUEST RELATIONS ASSOCIATE, YENNY) 10/04/2018 Sex and Gender Information Value Date Recorded Sex Assigned at Male 04/24/2020 7:21 AM CDT Legal Sex Male 2:57 AM CDT Gender Identity Male 04/24/2020 7:21 AM CDT Sexual Orientation Straight 04/24/2020 7: 21 AM CDT Last Filed Vital Signs Vital Sign Reading Time Taken Comments Blood Pressure 122/60 07/03/2020 9:46 AM CDT Pulse 62 07/03/2020 9:46 AM CDT Temperature 36.5 C (97.7 F) 07/03/2020 9:46 AM CDT Respiratory Rate 18 07/03/2020 9:46 AM CDT Oxygen Saturation 96% 07/03/2020 9:46 AM CDT Inhaled Oxygen Concentration - - Weight 79.8 kg (176 lb) 07/03/2020 9:46 AM CDT Height 177.8 cm (5' 10) 07/03/2020 9:46 AM CDT Body Mass Index 25.25 07/03/2020 9:46 AM CDT Plan of Treatment Health Maintenance Due Date Last Done Comments RSV Immunization or 60+ Years (1 - Risk 60-74 years 1-dose series) 2012 Zoster Vaccines (1 of 2) 06/03/2020 020, 01/21/2020, 03/28/2012 COVID-19 Vaccine (3 - Pfizer risk series) 03/02/2021 02/02/2021, 01/10/2021 Annual Medicare Wellness Visit 04/25/2021 04/24/2020 DTaP, Tdap and Td Vaccines ( 2 - Td or Tdap) 07/05/2024 07/05/2014 Colorectal Cancer Screening Colonoscopy (10 Years) 06/21/2028 06/21/2018 Hepatitis C Completed 04/07/2018, 04/07/2018 Pneumococcal Vaccine: 50+ Years Completed 01/21/2020, 04/07/2018, 09/27/2012 Meningococcal B Vaccine Aged Out No l onger eligible based on patient's age to complete this topic Meningococcal Vaccine Aged Out No margarette audra eligible based on patient's age to complete this topic RSV Immunizations Under 20 Months Aged Out No longer eligible b ased on patient's age to complete this topic Procedures Procedure Name Priority Date/Time Associated Diagnosis Comments COLONOSCOPY Routine 06/21/2018 12:00 AM CDT HEPATITIS C ANTIBODY Routine 04/07/2018 9:18 AM CDT from Last 3 Months or Most Recently Relevant to Health Maintenance Results * Colonoscopy (06/21/2018 12:00 AM CDT) 06/21/2018 06/21/2018 Narrative [facility] TO EPIC CONVERSION - 06/21/2018 12:00 AM CDT Documented hx of procedure Procedure Note , Generic Conversion, - 09/17/2018 Documented hx of procedure us Generic Conversion Md [facility] PROCEDURE ORDERABLES Final Result [facility] TO EPIC CONVERSION * HEPATITIS C ANTIBODY (04/07/2018 9:18 AM CDT) HEPATITIS C AB NON-REACTI VE NON-REACTI VE 04/11/2018 3:13 PM CDT [facility] SERUM OR PLASMA SPECIMEN / Unknown 04/07/2018 9:18 AM CDT 04/11/2018 9:45 AM CDT us Generic Conversion Md [facility] Final R esult [facility] [address] [place] [address], from Last 3 Months or Most Recently Relevant to Health Maintenance Insurance [employer] MEDICARE Care Teams Dry Goods Inspector Relationship Specialty Start Date End Date Nicolas Mercer MD PCP - General INTERNAL MEDICINE 10/12/18 Rashida Cintron MD [address] [place] [address] Consulting Physician DERMATOLOGY 07/03/20 [place] [address] [facility] [address] [place] [address] Consulting Physician ORTHOPAEDIC SURGERY 07/03/20 Orlando Israel MD [address] [place] [address] Consulting Physician HEMATOLOGY/ONCOLOGY 07/03/20 David Bland MD [address] [place] [address] Consulting Physician INTERNAL MEDICINE 07/03/20
--- OUTSIDE RECORDS SUMMARY | 2025-06-14 08:08 | XMS_ITS | Encounter Summary ---
Author Organization [facility] Address [address] [place] [address] Care Team Providers Care Container Washer Name Role Phone Nicolas Mercer MD Primary Care Provider [phone] Rashida Cintron MD Unavailable [phone] Omar Jo MD Unavailable [phone] Orlando Israel MD Unavailable [phone] David Bland MD Unavailable Unavailable Encounter Details Date Type Department Care Team (Late st Contact Info) Description 05/08/2019 Zattikka Message Enc [employer] DEPARTMENT [address] [place] [address] Janeth, [facility] Provider RE:Appointment on 05/15 Social History Tobacco Use Types Packs/Day Years [...] Master's degree (e.g., MA, MS, Kaley, MEd, GORING CUTTER, YENNY) 10/04/2018 Sex and Gender Information Value [...] on filedocumented in this encounter Care Teams Container Washer Relationship Specialty Start Date End Date Nicolas Mercer MD PCP - General INTERNAL MEDICINE 10/12/18 Rashida Cintron MD [address] [place] [address] Consulting Physician DERMATOLOGY 07/03/20 [place] [address] [facility] [address] [place] [address] Consulting Physician ORTHOPAEDIC SURGERY 07/03/20 Orlando Israel MD [facility] [facility] [employer] [address] [place] [address] Consulting Physician HEMATOLOGY/ONCOLOGY 07/03/20 David Bland MD [address] [facility] [employer] [address] [place] [address] Consulting Physician INTERNAL MEDICINE 07/03/20 documented as of this encounter
--- OUTSIDE RECORDS SUMMARY | 2025-06-14 08:08 | XMS_ITS | Encounter Summary ---
Author Organization [facility] Address [facility] [place] [address] Care Team Providers Care Dry House Tender Name Role Phone Nicolas Mercer MD Primary Care Provider [phone] Rashida Cintron MD Unavailable [phone] Omar Jo MD Unavailable [phone] Orlando Israel MD Unavailable [phone] David Bland MD Unavailable Unavailable Encounter Details Date Type Department Care Team (Late st Contact Info) Description 02/04/2020 MyChart Message Enc [facility] Medical Group Family & Internal Medicine [facility] [address] [place] [address] Nicolas Mercer MD [address] [address] RE: Medication Questions Social History Tobacco Use Types Packs/Day Years [...] Master's degree (e.g., MA, MS, Kaley, MEd, TINTER PHOTOGRAPH, YENNY) 10/04/2018 Sex and Gender Information Value Date Recorded Sex Assigned at Male 04/24/2020 7:21 AM CDT Legal Sex Male 2:57 AM CDT Gender Identity Male 04/24/2020 7:21 AM CDT Sexual Orientation Straight 04/24/2020 7: 21 AM CDT documented as of this encounter Progress Notes * Nicolas Mercer MD - 02/04/2020 1:43 PM CDT I would do Epsom salts soak for 5 or 10 minutes to reduce irritation, and use Lamisil cream (twice daily) or gel (once daily) and treat for two weeks minimum. * Kalyani Stevens RN - 02/04/2020 10:54 AM CDT Please advise. * eLón Salsa MA - 02/04/2020 9:49 AM CDT Pt calling in for suggestions, please advise documented in this encounter Plan of Treatment Not on file documented as of this encounter Visit Diagnoses Not on filedocumented in this encounter Care Teams Dry House Tender Relationship Specialty Start Date End Date Nicolas Mercer MD PCP - General INTERNAL MEDICINE 10/12/18 Rashida Cintron MD [address] [place] [address] Consulting Physician DERMATOLOGY 07/03/20 [place] [address] [address] Consulting Physician ORTHOPAEDIC SURGERY 07/03/20 Orlando Israel MD [address] [address] Consulting Physician HEMATOLOGY/ONCOLOGY 07/03/20 David Bland MD [address] [address] Consulting Physician INTERNAL MEDICINE 07/03/20 documented as of this encounter
--- OUTSIDE RECORDS SUMMARY | 2025-06-14 08:08 | XMS_ITS | Encounter Summary ---
Author Organization [facility] Address [facility] [place] [address] Care Team Providers Care Manager Secondary Name Role Phone Nicolas Mercer MD Primary Care Provider [phone] Rashida Cintron MD Unavailable [phone] Omar Jo MD Unavailable [phone] Orlando Israel MD Unavailable [phone] David Bland MD Unavailable Unavailable Encounter Details Date Type Department Care Team (Late st Contact Info) Description 07/15/2020 Nimbitt Message Enc [facility] Medical Group Family & Internal Medicine [address] [address] Jaida Clark, MECHANICAL ASSEMBLER RE: Other Social History Tobacco Use Types [...] Master's degree (e.g., MA, MS, Kaley, MEd, SALES OPERATIONS COORDINATOR, YENNY) 10/04/2018 Sex and Gender Information Value Date Recorded Sex Assigned at Male 04/24/2020 7:21 AM CDT Legal Sex Male 2:57 AM CDT Gender Identity Male 04/24/2020 7:21 AM CDT Sexual Orientation Straight 04/24/2020 7: 21 AM CDT COVID-19 Exposure Response Date Recorded In the last month, have you been in contact with someone who was confirmed or suspected to have Coronavirus / COVID-19? No / Unsure 07/03/2020 9:36 AM CDT documented as of this encounter Plan of Treatment Not on file documented as of this encounter Visit Diagnoses Not on filedocumented in this encounter Care Teams Manager Secondary Relationship Specialty Start Date End Date Nicolas Mercer MD PCP - General INTERNAL MEDICINE 10/12/18 Rashida Cintron MD [address] [place] [address] Consulting Physician DERMATOLOGY 07/03/20 [place] [address] [facility] [address] [place] [address] Consulting Physician ORTHOPAEDIC SURGERY 07/03/20 Orlando Israel MD [address] [employer] [address] [place] [address] Consulting Physician HEMATOLOGY/ONCOLOGY 07/03/20 David Bland MD [address] [employer] [address] [place] [address] Consulting Physician INTERNAL MEDICINE 07/03/20 documented as of this encounter
--- OUTSIDE RECORDS SUMMARY | 2025-06-14 08:08 | XMS_ITS | Encounter Summary ---
Author Organization [facility] Address [address] [place] [address] Care Team Providers Care Experimental Box Tester Name Role Phone Nicolas Mercer MD Primary Care Provide r Encounter Details Date Type Department Care Team (Late Contact Info) Description 06/13/2025 Orders Only [facility] Oncology and Hematology - Natan [address] [place] [address] Orlando Israel MD [address] [employer] [address] [place] [address] Pancytopenia (CMS/HCC) (Primary Dx) Social History Tobacco Use Types Packs/Day Years Used Date Smoking Tobacco: Never Smokeless Tobacco: Never Alcohol Use Standard Drinks/Week Comments Yes 4 (1 standard drink = 0.6 oz pur e alcohol) Sex and Gender Information Value Date Recorded Sex Assigned at Not on file Legal Sex Male 10:02 AM CDT Gender Identity Not on file Sexual Orientation Not on file documented as of this encounter Plan of Treatment Upcoming Encounters Date Type Department Care Team (Late Contact Info) Description 06/14/2025 8:30 AM CDT Office Visit [facility] Oncology and Hematology - [address] [place] [address] Orlando Israel MD [address] [employer] [address] [place] [address] Scheduled Orders Name Type Priority Associated Diagnoses Orde r Schedule BASIC METABOLIC PANEL Lab Routine Pancytopenia (CMS/HCC) Expected: 06/13/2025, Expires: 06/13/2026 CBC WITH DIFFERENTIAL Lab Routine Pancytopenia (CMS/HCC) Expected: 06/13/2025, Expires: 06/13/2026 documented as of this encounter Visit Diagnoses Diagnosis Pancytopenia (CMS/HCC)- Primary Other pancytopenia documented in this encounter Care Teams Experimental Box Tester Relationship Specialty Start Date End Date Nicolas Mercer MD PCP - General Internal Medicine 05/03/18 documented as of this encounter
--- OUTSIDE RECORDS SUMMARY | 2025-06-14 08:08 | XMS_ITS | Encounter Summary ---
Author Organization [facility] Address [facility] [place] [address] Care Team Providers Care Acls Specialist Name Role Phone Nicolas Mercer MD Primary Care Provider [phone] Rashida Cintron MD Unavailable [phone] Omar Jo MD Unavailable [phone] Orlando Israel MD Unavailable [phone] David Bland MD Unavailable Unavailable Encounter Details Date Type Department Care Team (Late st Contact Info) Description 11/09/2020 Zane Prept Message Enc [facility] Medical Group Family & Internal Medicine [address] [address] Jaida Clark, PRECISION AGRICULTURE TECHNICIAN RE: Other Social History Tobacco Use Types [...] Master's degree (e.g., MA, MS, Kaley, MEd, LEDGER POSTER, YENNY) 10/04/2018 Sex and Gender Information Value [...] on filedocumented in this encounter Care Teams Acls Specialist Relationship Specialty Start Date End Date Nicolas Mercer MD PCP - General INTERNAL MEDICINE 10/12/18 Rashida Cintron MD [address] [place] [address] Consulting Physician DERMATOLOGY 07/03/20 [place] [address] [facility] [address] [place] [address] Consulting Physician ORTHOPAEDIC SURGERY 07/03/20 Orlando Israel MD [address] [place] [address] [place] [address] Consulting Physician HEMATOLOGY/ONCOLOGY 07/03/20 David Bland MD [address] [place] [address] [place] [address] Consulting Physician INTERNAL MEDICINE 07/03/20 documented as of this encounter
--- OUTSIDE RECORDS SUMMARY | 2025-06-14 08:08 | XMS_ITS | Patient Health Record ---
Author Organization [facility] Address [address] [place], [place] [address] Care Team Providers Care Underlay Stitcher Name Role Phone PEÑA ARAUJO Unavailable [phone] Francisco Randolph Unavailable Unavailable Reason For Referral No Information Plan Of Treatment No Information Insurance Providers Payer Name Payer Address Payer Phone Subscriber Number Group Number Insured Name Patient Relationship to Insured Coverage Start Date Coverage End Date Amarilis Contreras (Regions 1-6) [address] [place], [place] [id number] HUE BRANTLEY Self - patient is the insured
--- OUTSIDE RECORDS SUMMARY | 2025-06-14 08:08 | XMS_ITS | Clinical Summary ---
Author Organization [facility] Address [address] [place] [address] Phone Care Team Providers Care Mechanical Engineering Specialist Name Role Phone Unavailable Primary Care Provider Unavailabl e Social History Tobacco Use Types Packs/Day Years Used Date Smoking Tobacco: Never Assessed Sex and Gender Information Value Date Recorded Sex Assigned at Not on file Legal Sex Male 10:48 AM CDT Gender Identity Not on file Sexual Orientation Not on file Plan of Treatment Health Maintenance Due Date Last Done Comments Hepatitis C Virus (HCV) Screening 1950 TdaP Immunization 1950 Cologuard 1997 Colonoscopy 1997 Colorectal Cancer Screening 1997 Immunochemical Fecal Occult Blood 1997 Pneumococcal Immunization (5 0+ years) (1 of 1 - PCV) 2002 Zoster Immunization (1 of 2) 2002 SARS-COV-2 Immunization (3 - season) 2024 02/02/2021, 01/10/2021 Influenza Immunization (#1) 07/15/202507/16, 08/01/2019 Respiratory Syncytial Virus (RSV) Immunization (Adult) (1 - 1-dose 75+ series) 2027 Hepatitis B Immunization Aged Out No longer eligible based on patient's age to complete this topic Human Papillomavirus (HPV) Immunization Aged Out No longer eligible b ased on patient's age to complete this topic Meningococcal Immunization (ACWY) Aged Out No longer eligible b ased on patient's age to complete this topic Rotavirus Immunization Aged Out No lo nger eligible based on patient's age to complete this topic Insurance MEDICARE [employer]
--- OUTSIDE RECORDS SUMMARY | 2025-06-14 08:08 | XMS_ITS | Clinical Summary ---
Author Organization [facility] Address [address] 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 This disclosure is being madepursuant to the Care Everywhere program and may not contain all information available regarding this patient. Last updated 18.[facility] Allergies Active Allergy Reactions Criticality Noted Date Comments Gabapentin Other,Dizziness,Psychiatric,Rash High Medications * Be aware that medications may not be up to date on this document. Alwaysverify current medications with the patient. 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 Gender Identity Not on file Sexual Orientation Not on file Last Filed Vital Signs Vital Sign Reading Time Taken Comments Blood Pressure - - Pulse - - Temperature - - Respiratory Rate - - Oxygen Saturation - - Inhaled Oxygen Concentration - - Weight 74.8 kg (165 lb) 06/21/2023 12:20 PM CDT Height 177.8 cm (5' 10) 06/21/2023 12:20 PM CDT Body Mass Index 23.68 06/21/2023 12:20 PM CDT Plan of Treatment Health Maintenance Due Date Last Done Comments COLOGUARD (AGES 45-75) - COLON CA SCREENING 1952 COLON MONITORING 1952 COLONOSCOPY - COLON CA SCREENING 1952 CT COLONOGRAPHY - COLON CA SCREENING 1952 Colorectal Cancer Screening 1952 FIT - COLON CA SCREENING 1952 FLEX SIG - COLON CA SCREENING 1952 LIPID TESTING 1952 MEDICARE AWV 12 MONTHS 1952 HEPATITIS C SCREENING 04/26/1970 DTAP/TDAP/TD VACCINES (1 - Tdap) 1971 PNEUMOCOCCAL VACCINE 50+ (1 of 1 - PCV) 2002 ZOSTER VACCINE (1 of 2) 2002 COVID-19 VACCINE (3 - season) 2024 02/02/2021, 01/10/2021 DEPRESSION SCREENING 11/14/2024 INFLUENZA VACCINE (#1) 2025 8, 08/26/2017, 08/10/2016, Additional history exists Respiratory Syncytial Virus (RSV) Vaccine Pt: or over 60 yrs (1 - 1-dose 75+ series) 2027 HEPATITIS B VACCINE Aged Out No longe r eligible based on patient's age to complete this topic HIB VACCINE Aged Out No longer eligi ble based on patient's age to complete this topic HPV VACCINE Aged Out No longer eligi ble based on patient's age to complete this topic MENINGOCOCCAL (Group B) VACCINE SHARED DECISION-MAKING Aged Out No longer eligible based on patient's age to complete this topic MENINGOCOCCAL GROUPS A/C/Y/W VACCINE Aged Out No longer eligible based on patient's age to complete this topic [place] [address] [place] [address] Care Teams Laborer Pipeline Relationship Specialty Start Date End Date [address], [place] [address] PCP - General 10/16/19
[2025-06-14 08:23] LABS: Hematocrit 44.6 % (42.0-52.0); Hemoglobin 15.0 g/dL (14.0-18.0); Immature Granulocyte Percent A 0.3 % (0-0.5); Lymphocytes Absolute Auto 1.11 K/mm3 (0.9-3.2); Mean Corpuscular HGB Conc 33.6 g/dl (32-36); Mean Corpuscular Hemoglobin 30.1 pg (26-34); Mean Corpuscular Volume 89.6 fl (80-100); Nucleated Red Blood Cells Absolute Auto 0.000 K/mm3 (0.0-0.012); Nucleated Red Blood Cells Perc 0.0 % (0.0-0.2); Platelet Count Result 153 k/mm3 (150-375); Red Blood Count 4.98 M/mm3 (4.6-6.20); White Blood Count 3.3 K/mm3 (4.5-10.0)
[2025-06-14 08:27] LABS: Blood Urea Nitrogen 27 mg/dL (8-26); Carbon Dioxide 24 mmol/L (22-30); Chloride 106 mmol/L (98-109); Estimated Glomerular Filt Rate 50; Glucose 96 mg/dL (70-105); Ionized Calcium (POC) 1.30 mmol/L (1.11-1.31); Potassium 4.4 mmol/L (3.5-4.9); Sodium 141 mmol/L (138-146)
== END 2025-06-14 08:05 | disposition home or self-care (01) ==
LOC: ANHLAB 08:06
PROVIDERS: PCP Emergency Medicine; Visit Provider Internal Medicine Hematology & Oncology
DX: D61.818 Other pancytopenia (principal)
CPT/HCPCS: 36415; 80047; 85025